=== PATIENT | female | born 1945 | race Caucasian/White ===

== ENCOUNTER 2023-12-06 11:01 | Outpatient (AMB) | payer MEDICARE, SELFPAY ==
[2023-12-06 11:10] VITALS: BMI 19.3
--- NOTE | 2023-12-06 11:10 | A.OFFVIS_ITS ---
Intake VS Expanded 12/06/23 11:10 Height 5 ft Weight 99 lb 0.2 oz BMI 19.3 Intake Visit Reasons: Weight Loss/CONFIRMED HPI Nutrition Presentation Details Pt presents for MNT for unintentional weight loss. Pt was referred by [facility], oncology department. Pt presents with her daughter, Lisa to this appt. Pt was diagnosed with right middle lobe lung cancer and underwent lobectomy in 10/03/2023. Pt reports working on increasing foods but having lack of appetite . Daughter reports buying ensure which Pt may have 1-3 a day. Pt reports having diabetes , currently on glipizide 10 mg twice a day, and Pt reports concerns about increased blood sugar if having extra food. Pt reports she was 130 lbs over a year ago , when living in [place]. Pt denies vomiting, denies diarrhea, constipation,reports urine color is often c lear, not dark typical meal may consist of B: scrambled eggs with spinach and salt, coffee with splenda and black snack: cheese and chocalate lactaid whole milk or ensure L: soup ( chicken , noodles, carrotts, peas) dinner: pasta, hamburg, avocado, water or whole milk snacks: pound cake or crackers Pt reports fasting blood sugar can range from 136-200 mg Most Recent Diabetes Results: No Data to Display ON LICENSE OF [facility] Surgical History (Updated 12/06/23 @ 13:08 by Peggy Mccabe, RD, LDN) History of lobectomy of lung Assessment & Plan Assessment & Plan (1) Weight loss, unintentional: Comment: Pt c/o loss of appetite , particularly after lobectomy in 09/2023. Pt also has type 2 DM and is concerned of elevated glucose Code(s): R63.4 - Abnormal weight loss Plan: wt: 45 kg est kcal needs a per 30 kcal/kg bw: 1400 + 500 for gradual weight gain Est fluid needs : 1400 ml/d est prot as per 1g/kg bw: 45 Rec fiber intake : 8 g per day and gradually increase up to 28 g per day or as tolerated Recommend increasing calories by 500 to promote weight gain and prevention of weight loss related to c/o loss of appetite and hx of lung CA with recent lobectomy. Recommend increasing nutrient dense foods with adequate carbohydrates for weight gain and glucose control. Recommend prescribing glucerna hunger smart shake , 2 a day for a total of 360 calories a day, 30 g protein. Pt to take glucerna in between meals as a snack. (2) T2DM (type 2 diabetes mellitus): Code(s): E11.9 - Type 2 diabetes mellitus without complications Plan: Have glucerna hunger smart shake as a snack in between meals, have one at bedtime Patient Instructions: Work on gradually increasing calories by 500 a day: Have glucerna hunger smart shake , 2 a day , in between meals as a snack Have milk with meals , choose whole milk Add 1 tbsp of peanut butter to your cereal in the morning and 1 tsp of olive oil to your dinner meal after cooked Monitor your blood sugar as prescribe by your doctor and bring record to next follow up Call for questions prior to next appt Coding Level of Care Code Nutr Indiv Intake (91826) Diagnoses Weight loss, unintentional R63.4 T2DM (type 2 diabetes mellitus) E11.9 Time Spent (min) 30
== END 2023-12-06 12:01 | disposition home or self-care (01) ==
PROVIDERS: PCP Student in an Organized Health Care Education/Training Program; Visit Provider Dietitian, Registered
DX: R63.4 Abnormal weight loss (principal); E11.9 Type 2 diabetes mellitus without complications

== ENCOUNTER → 2023-12-06 11:01 | Outpatient (BNVA) | payer MEDICARE, SELFPAY | PROVIDERS: PCP Student in an Organized Health Care Education/Training Program; Visit Provider Dietitian, Registered | DX: R63.4 Abnormal weight loss (principal); E11.9 Type 2 diabetes mellitus without complications | CPT/HCPCS: 97802 ==